=== PATIENT | female | born 1995 | race Caucasian/White ===

== ENCOUNTER 2021-05-03 15:49 | Emergency (ER) | payer MEDICAID ==
[~2021-05-03] VITALS: Ht 162.6 cm; Wt 75.3 kg
[2021-05-03 16:08] VITALS: BP 118/71
[2021-05-03 17:21] LABS: BASOPHILS % (AUTO) 0.2 % (0.0-2.0); EOSINOPHILS # (AUTO) 0.2 K/uL (0-0.4); EOSINOPHILS % (AUTO) 1.8 % (0.0-4.0); HEMATOCRIT 35.4 % (36-48); HEMOGLOBIN 11.6 g/dL (12.0-16.0); LYMPHOCYTES # (AUTO) 2.9 K/uL (2.5-16.5); LYMPHOCYTES % (AUTO) 25.5 % (20.5-51.1); MEAN CORPUSCULAR HEMOGLOBIN 28 pg (27-31); MEAN CORPUSCULAR HGB CONC 33 g/dL (33-37); MEAN CORPUSCULAR VOLUME 84.8 fL (80-94); MONOCYTES # (AUTO) 0.5 K/uL (0.8-1.0); MONOCYTES % (AUTO) 4.6 % (1.7-9.3); NEUTROPHILS # (AUTO) 7.8 K/uL (1.8-7.7); NEUTROPHILS % (AUTO) 67.9 % (42.2-75.2); PLATELET COUNT (AUTO) 333 K/uL (140-450); RED BLOOD CELL COUNT(AUTO) 4.17 MIL/uL (4.20-5.40); RED CELL DISTRIBUTION WIDTH 15.5 % (11.6-13.7); WHITE BLOOD COUNT (AUTO) 11.5 K/uL (4.8-10.8)
[2021-05-03 17:40] LABS: ALBUMIN 3.6 g/dL (3.4-5.0); ANION GAP 13.2 (8-16); CARBON DIOXIDE 26.1 mmol/L (21-32); CREATININE 0.7 mg/dL (0.6-1.3); POTASSIUM 3.3 mmol/L (3.5-5.1); TOTAL BILIRUBIN 0.1 mg/dL (0.0-1.0)
--- NOTE | 2021-05-03 18:55 | NUR ---
PT AMBULATED TO BED #4.
[2021-05-03] MEDS ORDERED: HYDROcodone/APAP 5/325 MG 1 TAB TAB PO ONE (19:25)
[2021-05-03] MEDS ORDERED: ACET-8386 PO (19:26)
--- NOTE | 2021-05-03 19:30 | NUR ---
pt is a 26 y/o f bib self with c/o LLQ pain. pt has had chronic pain for 3 yrs. but pt states 7/10 pain now. pt said that pain feel like a sharp contraction pain. pt admits having a miscarrriage last year but last menstrual was apr 22, 2021 w/ some spotting in between. pt said last bm was yesterday. pt has no previous med hx besides having 2 vaginal births and 1 miscarriage. mother had type 2 diabetes. pt denied n/v/f/sob/chest pain/ no covid like symptoms.
[2021-05-03 19:55] VITALS: BP 116/75
--- NOTE | 2021-05-03 19:55 | NUR ---
Patient discharged with v/s stable. Written and verbal after care instructions given and explained. Patient alert, oriented and verbalized understanding of instructions. Ambulatory with steady gait. All questions addressed prior to discharge. ID band removed. Patient advised to follow up with PMD. Rx of hydrocodon/acetametophin 5-325 given. Opportunity to ask questions provided and answered.
--- NOTE | 2021-05-03 19:58 | NUR ---
The patient's care was reviewed and supervised by iMriam Pearce RN.
== END 2021-05-03 19:55 | disposition home or self-care (01) ==
LOC: MED 15:49
DX: R10.2 Pelvic and perineal pain (principal)
CPT/HCPCS: 36415; 76856; 80053; 81002; 81025; 83690; 84702; 85025; 99284; Q0092

== ENCOUNTER 2021-08-26 15:00 | Emergency (ER) | payer MEDICAID ==
[~2021-08-26 15:00] MED LIST: ACET-8386 PO
== END 2021-08-26 15:47 | disposition left against medical advice (07) ==
LOC: MED 15:00
DX: N93.9 Abnormal uterine and vaginal bleeding, unspecified (principal); Z53.21 Procedure and treatment not carried out due to patient leaving prior to being seen by health care provider